=== PATIENT | female | born 1995 | race African-American/Black ===

== ENCOUNTER 2018-01-27 13:56 | Outpatient (CLI) | payer MEDICAID ==
--- NOTE | 2018-01-27 15:48 | ULT ---
COMPLETE OB ULTRASOUND GREATER THAN 14 WEEKS: HISTORY: A 22-year-old female with no care for size and dates and anatomy evaluation. FINDINGS: Single viable intrauterine fetus is noted in cephalic presentation. The placenta is anterior. heart rate 144 b.p.m. Amniotic fluid within normal limits with an GERRI of 8.9 cm. Cervical length w as poorly seen. Visualized brain was incompletely seen. Cerebellum, cisterna magna, and lateral ventricles were not adequately noted. Otherwise, anatomy including the 4-chamber heart, 3-vessel cord, cord insert , stomach, kidneys, bladder, and spine and extremity regions were all unremarkable as visualized. BPD 9.1 cm-37 weeks 1 day Head circumference 32.8 cm-37 weeks 2 days Abdominal circumference 33 cm-37 weeks 0 days Femur length 7.2 cm-37 weeks 0 days. IMPRESSION: 1. Single viable intrauterine fetus at 37 weeks 0 days, estimated date of confinement 02/17/18 2. Estimated weight 3099 gm +/- 459 gm. POS: JULIEN
== END 2018-01-27 13:57 | disposition home or self-care (01) ==
LOC: ULT 13:56
PROVIDERS: ATTEND Nurse Practitioner
DX: O09.93 Supervision of high risk pregnancy, unspecified, third trimester (principal); Z3A.37 37 weeks gestation of pregnancy
CPT/HCPCS: 76805

== ENCOUNTER 2018-01-29 10:56 | Inpatient (IN) | payer MEDICAID ==
[2018-01-29] MEDS ORDERED: NS / Oxytocin 40 units/1000ml 0 ML ONE (11:09)
[2018-01-29] MEDS ORDERED: Oxytocin 10 UNITS/ML VIAL ONE (11:12)
[2018-01-29] MEDS ORDERED: Ibuprofen 800 MG TAB PO PRN (11:26)
[2018-01-29] MEDS ORDERED: NS / Oxytocin 40 units/1000ml 1,000 ML IV PRN (11:26)
[2018-01-29] MEDS ORDERED: Lidocaine 1% (PF) 30 ML VIAL SC PRN (11:26)
[2018-01-29 11:47] VITALS: BMI 33.3
[2018-01-29 12:07] LABS: Hemoglobin 9.5 g/dL (12.0-16.0); Red Blood Cell (RBC) Count 4.62 mill/uL (4.20-5.40); White Blood Cell (WBC) Count 8.5 thou/uL (4.8-10.8)
--- NOTE | 2018-01-29 12:15 | OP ---
DATE OF SERVICE: 01/29/2018 DESCRIPTION OF PROCEDURE: The patient delivered a male infant on 01/29/2018 at 11:08 a.m. by an unco mplicated term spontaneous vaginal delivery. Apgars were 9 and 9. Weight is unavailable at time of dictation. Placenta delivered spontaneously followed by Pitocin IM injection. Estimated blood loss is 200 mL. There were no lacerations. Dr. Adams is the delivering physician. Counts were correct . Mother and baby are stable in the room in the immediate .
[2018-01-29 12:26] LABS: HBSAg Index 0.16 S/CO (0-0.99); Hep B Surf Ag Non-Reactive S/CO (NonReactive)
[2018-01-29 12:32] LABS: Mean Corpuscular HGB CONC 32.2 g/dL (32.0-36.0); Mean Corpuscular Hemoglobin 20.6 pg (27.0-31.0); Mean Corpuscular Volume 64.1 fl (81.0-99.0); Mean Platelet Volume 10.6 fL (7.4-10.4); Platelet Count 312 thou/uL (130-400); RBC Distribution Width 15.5 % (11.5-14.5)
[2018-01-29 12:44] LABS: Syphilis Antibody Nonreactive (Nonreactive); Syphilis Antibody Index 0.04 S/CO (<1.00 Non-Reactive)
[2018-01-29] MEDS ORDERED: Lanolin Ointment 7 GM TUBE TOP PRN (13:58)
[2018-01-29] MEDS ORDERED: NS / Oxytocin 40 units/1000ml 1,000 ML IV SCH (13:58)
[2018-01-29] MEDS ORDERED: Ondansetron HCl/PF 4 MG/2 ML Vial IVP PRN (13:58)
[2018-01-29] MEDS ORDERED: Bisacodyl 10 MG SUPP PR PRN (13:58)
[2018-01-29] MEDS ORDERED: Milk Of Magnesia 30 ML UDCUP PO PRN (13:58)
[2018-01-29] MEDS: Ibuprofen 800 MG TAB PO SCH ×2 (14:31→21:09)
[2018-01-29] MEDS: Adacel (T-DAP) 0.5 ML VIAL IM ONE (14:32)
[2018-01-29] MEDS: Ferrous Sulfate 325 MG TAB PO SCH (17:57)
[2018-01-29 18:20] LABS: Amphetamine Not Detected (NotDetected); Barbiturates Screen Not Detected (NotDetected); Benzodiazepine Screen Not Detected (NotDetected); Cocaine Metabolite Screen Not Detected (NotDetected); Medtox Reader # READER 4; Methadone Not Detected (NotDetected); Methamphetamine Not Detected (NotDetected); Opiate Screen Not Detected (NotDetected); Oxycodone Screen Not Detected (NotDetected); Phencyclidine (PCP) Not Detected (NotDetected); THC/Cannabinoid Screen Not Detected (NotDetected); Tricyclic Screen Not Detected (NotDetected)
[2018-01-29 18:21] LABS: Medtox Control Line Valid? VALID (VALID)
[2018-01-29] MEDS: Docusate Calcium (SURFAK) 240 MG CAP PO SCH (21:09)
[2018-01-30 05:21] LABS: Mean Corpuscular HGB CONC 30.9 g/dL (32.0-36.0); Mean Corpuscular Hemoglobin 20.1 pg (27.0-31.0); Mean Platelet Volume 10.4 fL (7.4-10.4); Platelet Count 312 thou/uL (130-400); RBC Distribution Width 15.5 % (11.5-14.5); Red Blood Cell (RBC) Count 4.46 mill/uL (4.20-5.40); White Blood Cell (WBC) Count 10.8 thou/uL (4.8-10.8)
[2018-01-30] MEDS: Ibuprofen 800 MG TAB PO SCH ×3 (05:28→22:52)
--- NOTE | 2018-01-30 07:31 | PRG ---
DATE OF SERVICE: 01/30/2018 SUBJECTIVE: The patient is a 22-year-old day 1, status post a term spontaneous vaginal de livery. She reports she is tolerating p.o., voiding on her own, having decreased lochia and good akiko n control. PHYSICAL EXAMINATION: VITAL SIGNS: Today blood pressure is 106/56, temperature 99.0, pulse of 80, respiratory rate of 16. GENERAL: She appears to be in no acute distress. She is alert and oriented, cooperative and pleasan t to interact with. HEENT: Head is normocephalic, atraumatic. ABDOMEN: Fundus is firm. EXTREMITIES: Nontender, nonedematous. LABORATORY DATA: Her hemoglobin is 9.0, hematocrit 29.0, platelets 312,000. Blood type i s O positive. ASSESSMENT AND PLAN: The patient is day #1, status post a term spontaneous vaginal delive ry. She had very little care. GBS unknown. I believe the nursery is keeping the baby unti l tomorrow given her GBS unknown status. Anticipate discharge tomorrow.
[2018-01-30] MEDS: Ferrous Sulfate 325 MG TAB PO SCH ×2 (08:58→18:18)
[2018-01-30] MEDS: Docusate Calcium (SURFAK) 240 MG CAP PO SCH ×2 (08:58→22:53)
[2018-01-30] MEDS: Prenatal Vitamin 1 TAB PO SCH (08:58)
[2018-01-31] MEDS: Ibuprofen 800 MG TAB PO SCH (05:41)
--- NOTE | 2018-01-31 07:17 | PDOC.PP ---
Post Progress Note Post Day #: 2 PO intake tolerated: yes Flatus: yes Ambulation: yes Vital Signs (12 hours) Temp Pulse Resp BP 01/30/18 20:00 97.8 F 80 18 107/62 Weight Weight 188 lb - Physical Examination General: NAD Cardiovascular: no m/r/g, RRR Respiratory: clear to auscultation bilaterally, non-labored breathing Abdominal: + bowel sounds, lochia Extremities: negative homans (B) Neurological: no gross focal deficits Psychiatric: A&Ox3, normal affect Result Diagrams: 01/30/18 05:07 Additional Labs: Post Labs Blood Type O POSITIVE 01/29/18 11:29 Hep Bs Antigen Non-Reactive S/CO (NonReactive) 01/29/18 11:14 (1) Normal spontaneous vaginal delivery Code(s): O80 - ENCOUNTER FOR FULL-TERM UNCOMPLICATED DELIVERY Status: Acute - Assessment/Plan doing well dc home
[2018-01-31 08:03] VITALS: BP 118/57; TEMP 98.1
[2018-01-31] MEDS: Ferrous Sulfate 325 MG TAB PO SCH (08:06)
[2018-01-31] MEDS: Prenatal Vitamin 1 TAB PO SCH (08:06)
[2018-01-31] MEDS: Docusate Calcium (SURFAK) 240 MG CAP PO SCH (08:06)
[2018-01-31] MEDS: Adacel (T-DAP) 0.5 ML VIAL IM ONE (11:31)
== END 2018-01-31 12:05 | disposition home or self-care (01) | DRG 775 ==
LOC: L&D/OP 10:56 → EEVIPCON 11:23 → L&D 11:23 → 3SW 13:55
PROVIDERS: ADMIT Pediatrics Neonatal-Perinatal Medicine; ATTEND Family Medicine
PROC: 10E0XZZ Delivery of Products of Conception, External Approach (ICD-10-PCS; principal; 2018-01-29)
DX: O80 Encounter for full-term uncomplicated delivery (principal); Z23 Encounter for immunization; Z3A.37 37 weeks gestation of pregnancy; Z37.0 Single live birth
CPT/HCPCS: 36415; 80306; 85027; 86762; 86780; 86850; 86900; 86901; 87340; 90715; 99285; J2590

== ENCOUNTER 2018-08-19 14:56 | Emergency (ER) | payer OTHER, SELFPAY ==
[2018-08-19] MEDS ORDERED: Lidocaine 1% PF 5 ML VIAL ONE (16:31)
[2018-08-19] MEDS ORDERED: HYDROcodone/Acetaminophen 10/325 mg Tablet ONE (16:31)
[2018-08-19] MEDS ORDERED: Lidocaine 1% w/Epinephrine 1:100K 20 ML VIAL ONE (16:56)
== END 2018-08-19 17:33 | disposition home or self-care (01) ==
LOC: ERS 14:56
DX: N61.1 Abscess of the breast and nipple (principal)
CPT/HCPCS: 10061; J2001

== ENCOUNTER 2018-08-21 14:29 | Emergency (ER) | payer MEDICAID, SELFPAY | END 2018-08-21 15:29 | disposition home or self-care (01) | LOC: ERS 14:29 | DX: Z48.817 Encounter for surgical aftercare following surgery on the skin and subcutaneous tissue (principal) | CPT/HCPCS: 99282 ==